=== PATIENT | male | born 1950 | race Hispanic/Latino ===

== ENCOUNTER 2017-04-21 14:31 | Emergency (ER) | payer OTHER ==
[~2017-04-21] VITALS: Ht 170.2 cm; Wt 115.7 kg
[2017-04-21 14:44] VITALS: TEMP 98.7
[2017-04-21 15:27] LABS: PLATELET COUNT 168 K/uL (142-355)
[2017-04-21 15:34] LABS: POTASSIUM 3.4 mmol/L (3.6-5.2); SODIUM 142 mmol/L (136-145)
[2017-04-21 15:53] VITALS: BP 134/82
== END 2017-04-21 15:59 | disposition home or self-care (01) ==
LOC: ED 14:31
PROVIDERS: Emergency Medicine
DX: I10 Essential (primary) hypertension (principal)
CPT/HCPCS: 36415; 80053; 82550; 83880; 84484; 85027; 96374; 96375; 99283; J1940

== ENCOUNTER 2019-10-28 17:29 | Outpatient (CLI) | payer OTHER | END 2019-10-28 17:32 | disposition short-term general hospital (02) | LOC: AMB 17:29 | DX: R51 Headache (principal); R42 Dizziness and giddiness; W03.XXXA Other fall on same level due to collision with another person, initial encounter; Y92.89 Other specified places as the place of occurrence of the external cause | CPT/HCPCS: A0425; A0429 ==

== ENCOUNTER 2019-10-28 17:35 | Inpatient (IN) | payer OTHER ==
[~2019-10-28] VITALS: Ht 170.2 cm; Wt 111.6 kg
[2019-10-28] VITALS (7 sets, daily range): BP systolic 160–188; BP diastolic 89–913; TEMP 98.3–98.8; Ht 170.2 cm; Wt 111.6 kg
[2019-10-28 18:28] LABS: PLATELET COUNT 159 K/uL (142-355)
[2019-10-28 18:43] LABS: POTASSIUM 3.4 mmol/L (3.6-5.2)
[2019-10-28 22:22] LABS: PARTIAL THROMBOPLASTIN TIME 23.5 SECONDS (24.5-33.6)
[2019-10-29] VITALS: BP 160/90; BP 168/106; TEMP 99
[2019-10-29 04:00] VITALS: BP 156/92; TEMP 98.7
[2019-10-29 08:00] VITALS: BP 155/100; TEMP 98.3
[2019-10-29 12:00] VITALS: BP 144/85; TEMP 99
[2019-10-29 16:00] VITALS: BP 149/90; TEMP 98.3
[2019-10-29 20:00] VITALS: BP 151/99; TEMP 98.9
[2019-10-30] VITALS: BP 148/95; TEMP 99.4
[2019-10-30 04:00] VITALS: BP 148/93; TEMP 98.6
[2019-10-30 08:00] VITALS: BP 151/94; TEMP 98.3
[2019-10-30 09:38] LABS: POTASSIUM 3.8 mmol/L (3.6-5.2)
[2019-10-30 09:52] LABS: PLATELET COUNT 145 K/uL (142-355)
[2019-10-30 12:00] VITALS: BP 156/97; TEMP 98.5
[2019-10-30 16:00] VITALS: BP 158/95; TEMP 97.7
[2019-10-30 20:00] VITALS: BP 151/88; TEMP 98.5
[2019-10-31] VITALS: BP 163/101; TEMP 99.3
[2019-10-31 04:00] VITALS: BP 164/105; TEMP 97.8
[2019-10-31 04:41] LABS: PLATELET COUNT 153 K/uL (142-355)
[2019-10-31 04:53] LABS: POTASSIUM 3.7 mmol/L (3.6-5.2)
[2019-10-31 08:00] VITALS: BP 164/110; TEMP 97.6
[2019-10-31 12:00] VITALS: BP 158/99; TEMP 98.9
[2019-10-31 16:00] VITALS: BP 148/100; TEMP 98.5
[2019-10-31 20:00] VITALS: BP 143/89; TEMP 98.5
[2019-11-01] VITALS: BP 140/83; TEMP 99
[2019-11-01 04:00] VITALS: BP 147/92; TEMP 99.7
[2019-11-01 05:28] LABS: PLATELET COUNT 146 K/uL (142-355)
[2019-11-01 05:35] LABS: POTASSIUM 4.3 mmol/L (3.6-5.2)
[2019-11-01 08:00] VITALS: BP 136/95; TEMP 98.1
[2019-11-01 12:00] VITALS: BP 133/80; TEMP 98.8
[2019-11-01] MEDS ORDERED: METO-837 PO (12:06)
[2019-11-01] MEDS ORDERED: ASPIRIN325 M1 PO (12:06)
[2019-11-01] MEDS ORDERED: FURO20TA67 PO (14:18)
[2019-11-01] MEDS ORDERED: K-TAB10 MEQ PO (14:18)
== END 2019-11-01 18:25 | disposition home or self-care (01) | DRG 125 ==
LOC: ED 17:35 → MED/SURG 20:10
PROVIDERS: Emergency Medicine; ADMIT Internal Medicine
DX: S00.12XA Contusion of left eyelid and periocular area, initial encounter (principal); I50.1 Left ventricular failure, unspecified; D72.828 Other elevated white blood cell count; R07.89 Other chest pain; I11.0 Hypertensive heart disease with heart failure; J44.9 Chronic obstructive pulmonary disease, unspecified; E87.6 Hypokalemia; W03.XXXA Other fall on same level due to collision with another person, initial encounter; Y92.89 Other specified places as the place of occurrence of the external cause
CPT/HCPCS: 36415; 80048; 80053; 80202; 81000; 82150; 82550; 83605; 83690; 83880; 84484; 85027; 85610; 85730; 87040; 93005; 96360; 96375; 99284; J1650; J2405; J2543; J3370; Q9963

== ENCOUNTER 2020-03-13 11:08 | Inpatient (IN) | payer OTHER ==
[~2020-03-13] VITALS: Ht 170.2 cm; Wt 112.1 kg
[2020-03-13] VITALS (14 sets, daily range): BP systolic 81–125; BP diastolic 57–74; TEMP 98.7–98.8; Ht 170.2 cm; Wt 112.1 kg
[~2020-03-13 11:08] MED LIST: ASPIRIN325 M1 PO; FURO20TA67 PO; K-TAB10 MEQ PO; METO-837 PO
[2020-03-13 12:26] LABS: POTASSIUM 4.5 mmol/L (3.6-5.2)
[2020-03-13 12:27] LABS: PLATELET COUNT 184 K/uL (142-355)
[2020-03-13 12:29] LABS: PARTIAL THROMBOPLASTIN TIME 22.1 SECONDS (24.5-33.6)
[2020-03-14] VITALS (29 sets, daily range): BP systolic 81–172; BP diastolic 46–112; TEMP 98.2–99.9
[2020-03-14 09:57] LABS: POTASSIUM 4.3 mmol/L (3.6-5.2)
[2020-03-14 10:23] LABS: PLATELET COUNT 213 K/uL (142-355)
== END 2020-03-14 16:00 | disposition short-term general hospital (02) | DRG 308 ==
LOC: ICU 11:08 → MED/SURG 11:08 → ICU 14:09
PROVIDERS: ADMIT Family Medicine
DX: I48.0 Paroxysmal atrial fibrillation (principal); U07.1 COVID-19; J96.00 Acute respiratory failure, unspecified whether with hypoxia or hypercapnia; J18.8 Other pneumonia, unspecified organism; J44.1 Chronic obstructive pulmonary disease with (acute) exacerbation; I10 Essential (primary) hypertension; I16.0 Hypertensive urgency; D72.828 Other elevated white blood cell count; R61 Generalized hyperhidrosis
CPT/HCPCS: 36415; 36600; 80053; 80307; 82550; 82553; 82805; 83605; 83880; 84484; 85007; 85027; 85379; 85610; 85730; 87040; 87070; 87077; 87185; 87205; 87635; 93005; 94002; 94003; 94664; 94760; 99220; G0378; G0379; J0360; J0456; J1160; J1644; J1650; J1940; J2060; J2543; J3370; J3490; Q9963; U0002

== ENCOUNTER 2020-05-13 16:26 | Emergency (ER) | payer OTHER ==
[~2020-05-13] VITALS: Ht 170.2 cm; Wt 112.0 kg
[2020-05-13 17:44] LABS: PLATELET COUNT 191 K/uL (142-355)
[2020-05-13 17:49] LABS: POTASSIUM 4.7 mmol/L (3.6-5.2); SODIUM 143 mmol/L (136-145)
[2020-05-14 03:37] VITALS: TEMP 98.6
[2020-05-14 03:47] VITALS: BP 112/70
== END 2020-05-14 03:49 | disposition short-term general hospital (02) ==
LOC: ED 16:26
PROVIDERS: Emergency Medicine
DX: I50.9 Heart failure, unspecified (principal); I48.20 Chronic atrial fibrillation, unspecified
CPT/HCPCS: 80053; 82550; 82553; 83880; 84484; 85027; 85379; 96374; 96375; 99285; J1940; J3490; Q9963

== ENCOUNTER 2020-12-16 17:25 | Observation (INO) | payer OTHER ==
[2020-12-16] VITALS (10 sets, daily range): BP systolic 134–168; BP diastolic 86–112; TEMP 98.3–98.5; Ht 170.2 cm; Wt 102.1 kg
[~2020-12-16] VITALS: Ht 170.2 cm; Wt 102.1 kg
[2020-12-16 19:20] LABS: PLATELET COUNT 176 K/uL (142-355)
[2020-12-16 19:27] LABS: PARTIAL THROMBOPLASTIN TIME 22.9 SECONDS (24.5-33.6)
--- NOTE | 2020-12-16 21:47 | NUR ---
PATIENT ARRIVED ON THE FLOOR VIA W/C FROM ER. TRANSFERRED TO BED IN ROOM 1111. PATIENT ORIENTED TO SURROUNDINGS AND CALL LIGHT SYSTEM. ALERT AND ORIENTED. ABLE TO AMBULATE IF NEEDED. 20 TO LEFT AC SALINE LOCKED. NO ERYTHEMA OR SWELLING NOTED. PATIENT ON RA- O2 SATS ARE 95%. DENIES ANY SOB. B/P IS 158/112 ON THE MACHINE. 168/102 MANUALLY. WILL RE-ASSESS. PATIENT DID HAVE ELEVATED DIASTOLIC B/P UPON ARRIVING TO ER TODAY. HE IS ALSO A POOR HISTORIAN, AND IS UNABLE TO RECALL HIS HOME MEDICATIONS AT THIS TIME. BED LOCKED AND IN LOWEST POSITION. CALL LIGHT WITHIN EASY REACH.
--- NOTE | 2020-12-16 22:50 | NUR ---
IN TO RE-CHECK PATIENT'S B/P. PATIENT RESTING QUIETLY IN BED. NAD NOTED. 146/98 OBTAINED MANUALLY AT THIS TIME. PATIENT DENIES ANY OTHER CONCERNS OR COMPLAINTS. LEVAQUIN IVPB STARTED. CALL LIGHT WITHIN EASY REACH.
[2020-12-17] VITALS: BP 144/101; TEMP 97.6
--- NOTE | 2020-12-17 01:10 | NUR ---
LEVAQUIN IVPB FINISHED. 20G TO LEFT AC SALINE LOCKED AT THIS TIME. PATIENT DOES REPORT MILD SOB. RR IS SLIGHTLY ELEVATED BUT NO USE OF ACCESSORY MUSCLES NOTED. PATIENT IS BREATHING PRIMARILY THROUGH HIS MOUTH- INSTRUCTED ON BREATHING IN THROUGH THE NOSE AND OUT THROUGH THE MOUTH. ALSO ENCOURAGED PATIENT TO KEEP HOB ELEVATED TO HELP WITH SOB. CURRENT O2 SAT ON ROOM AIR IS 94-95% ENTERED PATIENT'S ROOM A FEW MINUTES LATER. HE STATES THAT THIS DID HELP. HE STATES THAT HE DID NOT USE ANY INHALERS OR MEDICATIONS FOR ASTHMA AT HOME.
[2020-12-17 04:00] VITALS: BP 142/92; TEMP 98.2
--- NOTE | 2020-12-17 04:42 | NUR ---
ELEVATED DIASTOLIC ON B/P READING BY MACHINE: 150/102. MANUAL B/P: 142/96. PATIENT RESTING QUIETLY IN BED. NO COMPLAINTS VOICED.
[2020-12-17 05:00] LABS: PLATELET COUNT 163 K/uL (142-355)
[2020-12-17 05:09] LABS: POTASSIUM 4.2 mmol/L (3.6-5.2)
--- NOTE | 2020-12-17 06:10 | NUR ---
IN TO GIVE PATIENT SOLU-MEDROL. PATIENT RESTING QUIETLY IN BED. NAD NOTED. PATIENT STATES HE FEELS MUCH BETTER THAN HE DID WHEN HE CAME IN THE ER LAST NIGHT. BED LOCKED AND IN LOWEST POSITION. CALL LIGHT WITHIN EASY REACH.
--- NOTE | 2020-12-17 07:30 | NUR ---
DARLING BRAND NOTICED WHILE TAKE MORNING VITALS THAT PT WAS LABORED IN BREATHING. RT WAS CONTACTED AND DAPHNE CAME TO PT'S ROOM. PT WAS GIVEN A BREATHING TREATMENT, DAPHNE STATED THAT PT SOUNDED CLEAR ALL OVER AND O2 SATURATION WAS AROUND 95%.
[2020-12-17 08:00] VITALS: BP 140/100; TEMP 98.3
--- NOTE | 2020-12-17 08:55 | NUR ---
INFORMED DR. REID OF PT'S LABS AND PM AND AM BP'S DR. REID STATES TO GET MED LIST FROM OFFICE AND RESTART HOME MEDICATIONS AT THIS TIME, NO FURTHER ORDERS GIVEN
[2020-12-17] MEDS ORDERED: AMIODARONE400 MG PO (09:49)
[2020-12-17] MEDS ORDERED: ASPIR-8181 MG PO (09:49)
[2020-12-17] MEDS ORDERED: BUMETANIDE2 MG PO (09:50)
[2020-12-17] MEDS ORDERED: CARV12.5 PO (09:54)
[2020-12-17] MEDS ORDERED: ELIQUIS5 MG PO (09:55)
[2020-12-17] MEDS ORDERED: CORRECTOL100 MG PO (09:55)
[2020-12-17] MEDS ORDERED: JANUVIA100 MG PO (09:56)
[2020-12-17] MEDS ORDERED: ENTRESTO 24-261 TAB PO (09:56)
[2020-12-17] MEDS ORDERED: LIPITOR80 MG PO (10:15)
[2020-12-17] MEDS ORDERED: DIGITEK0.125 MG PO (10:17)
--- NOTE | 2020-12-17 11:00 | NUR ---
JEREMIAS FROM PHARMACY STATES THAT PT'S HOME MEDICATION ENTRESTRO IS NOT AVAILABLE HERE AND WILL HAVE TO BE FILLED AT AN OUTSIDE PHARMACY AND BROUGHT IN, DR. REID STATES TO CALL IN MEDICATION AT PHARMACY AND GET THE MEDICATION SO PT CAN TAKE IT WHILE HE IS HERE, I ATTEMPTED TO CALL PT'S AND DAUGTER AND DO NOT HAVE THE CORRECT NUMBERS, PT IS UNABLE TO TELL ME ANY NUMBERS TO GET AHOLD OF HIS FAMILY, MEDICATION IS CALLED INTO [facility] AND WILL BE PICKED UP THIS AFTERNOON
[2020-12-17 12:00] VITALS: BP 157/102; TEMP 98
--- NOTE | 2020-12-17 13:30 | NUR ---
HUMAN SERVICES SUPERVISOR NOTIFIED COPPING MACHINE OPERATOR THAT PT'S IV WAS LEAKING BLOOD. COPPING MACHINE OPERATOR REMOVED TAPE AND IV CATHETER WAS SLIGHTLY OUT. WHEN FLUSHED, IV WOULD FLUSH WITHOUT DIFFICULTY BUT NO BLOOD RETURN. WHEN ASKED IF THE IV HURT PT STATED NO BUT THAT IT WAS ANNOYING WHEN HE TRIED TO MOVE. SARAH JIMENEZ RN REMOVED OLD IV AND BEGAN A NEW IV IN THE RT FOREARM.
--- NOTE | 2020-12-17 15:09 | NUR ---
i spoke with pt in his room today to inquire about his discharge needs, he stated that he will see Dr. Briggs on FU from hospital and denies any other needs but stated he has been off of his medication. He stated i could call his Margie Trotter or his step daughter Carina Trotter about his discharge plans. I tried phoning his but the phone number on the chart was disconnected. I went back to ask Mr. Trotter if he knew of any other phone numbers for his , and he said no, that she changed phone numbers often. I asked if he knew Carina's phone number and he stated no, she also changes phone numbers all the time. I was able to get a phone number from Dr. Flanagan's office for Carina. I spoke to Carina trotter [phone] and she stated that she lives at home with and Mrs. Trotter, she stated that her mother had a "bad stroke" 01/2020 and that she is paralyzed on the right side and is bedridden. She states Mr. Trotter and she help take care of Mrs. Trotter. She went on to state that Mr. Trotter "is stubborn and wont take his medicines." I informed her that we will make a follow up appt with Dr. Briggs and will make sure he had clear discharge instructions. She also stated Mrs. Rios current phone number is [phone].
[2020-12-17 16:06] VITALS: BP 109/76; TEMP 97.8
[2020-12-17 20:00] VITALS: BP 121/82; TEMP 98.1
[2020-12-18] VITALS: BP 117/77; TEMP 97.8
[2020-12-18 04:00] VITALS: BP 110/70; TEMP 97.9
[2020-12-18 04:07] LABS: PLATELET COUNT 152 K/uL (142-355)
[2020-12-18 04:19] LABS: POTASSIUM 4.4 mmol/L (3.6-5.2)
[2020-12-18 08:00] VITALS: BP 121/74; TEMP 98
--- NOTE | 2020-12-18 09:20 | NUR ---
12/18/20 0850 PT SITTING ON SIDE OF BED DENIES ANY PAIN OR DISCOMFORT.SALINE INTACT TO LT FOREARM 22 GAUDGE.PT STATES HE FEELS WELL THIS AM.CALL LIGHT WITHIN REACH.CC
[2020-12-18 12:00] VITALS: BP 105/66; TEMP 97.9
--- NOTE | 2020-12-18 12:17 | NUR ---
12/18/20 1217 SITTING ON SIDE OF BED EATING LUNCH 100 PERCENT EATEN.NO C/O VOICED.CALL LIGHT WITHIN REACH.CC
--- NOTE | 2020-12-18 14:19 | NUR ---
12/18/20 1350 PT RECEVING BREATHING TREATMENT TOLERATING WELL.NO C/O VOICED.CALL LIGHT WITHIN REACH.CC
--- NOTE | 2020-12-18 15:36 | NUR ---
12/18/20 1517 NEW ORDER PER DISCHARGE PATIENT TO HOME.CALL IN [place] TO [facility].OME MEDICATIONS REFILLS,Z-PACK,PROAIR INHALER.CC
--- NOTE | 2020-12-18 16:11 | NUR ---
12/18/20 1610 DISCHARGE INSTRUCTIONS GIVEN AND SIGNED.SL REMOVED APPLIED 2X2 SECURED WITH TAPE.[facility] CALLED PER DR.FORDHAM BARRAGAN TO FILL Z-PACK,PROAIR INHALER X 2 PUFFS QID.CC
--- NOTE | 2020-12-18 16:42 | NUR ---
12/18/2020 1630 NEW ORDER TO REFILL PATIENT HOME MEDICAITONS WITH [facility].CALLED IN TO [facility].CC 12/18/2020 1645 PT TOOK OUT VIA WHEELCHAIR TO [facility].CC
== END 2020-12-18 16:45 | disposition home or self-care (01) ==
LOC: ED 17:25 → MED/SURG 20:18
PROVIDERS: ADMIT Family Medicine; ATTEND Family Medicine
DX: J44.1 Chronic obstructive pulmonary disease with (acute) exacerbation (principal); Z91.19 Patient's noncompliance with other medical treatment and regimen; I10 Essential (primary) hypertension; F17.200 Nicotine dependence, unspecified, uncomplicated; E86.0 Dehydration; I25.10 Atherosclerotic heart disease of native coronary artery without angina pectoris; R06.02 Shortness of breath
CPT/HCPCS: 36415; 80053; 81000; 82550; 83735; 84100; 84484; 85027; 85610; 85730; 87040; 87635; 93005; 94640; 94664; 94760; 96365; 96367; 96372; 96375; 99220; 99284; G0378; J0456; J0696; J1020; J1956; J2930; U0003

== ENCOUNTER 2021-05-17 10:32 | Outpatient (CLI) | payer OTHER ==
[~2021-05-17 10:32] MED LIST changes: +AMIODARONE400 MG PO; +ASPIR-8181 MG PO; +BUMETANIDE2 MG PO; +CARV12.5 PO; +CORRECTOL100 MG PO; +DIGITEK0.125 MG PO; +ELIQUIS5 MG PO; +ENTRESTO 24-261 TAB PO; +JANUVIA100 MG PO; +LIPITOR80 MG PO
== END 2021-05-17 21:45 | disposition home or self-care (01) ==
LOC: LAB 10:32 → RESP 10:32
PROVIDERS: ATTEND Family Medicine
DX: R07.9 Chest pain, unspecified (principal)
CPT/HCPCS: 82550; 82553; 83735; 84100; 84484; 93005

== ENCOUNTER 2021-06-05 10:55 | Emergency (ER) | payer OTHER ==
[~2021-06-05] VITALS: Ht 170.2 cm; Wt 102.1 kg
[2021-06-05 11:00] VITALS: TEMP 98.3
[2021-06-05 12:32] LABS: PLATELET COUNT 200 K/uL (142-355)
[2021-06-05 12:40] LABS: POTASSIUM 3.7 mmol/L (3.6-5.2)
[2021-06-05 16:05] VITALS: BP 125/86
== END 2021-06-05 16:05 | disposition home or self-care (01) ==
LOC: ED 10:55
PROVIDERS: Family Medicine
DX: I50.9 Heart failure, unspecified (principal); R06.09 Other forms of dyspnea; J40 Bronchitis, not specified as acute or chronic; Z20.822 Contact with and (suspected) exposure to COVID-19
CPT/HCPCS: 80053; 82550; 83880; 84484; 85027; 85610; 85730; 87635; 93005; 94664; 96365; 96374; 96375; 99284; J0696; J1940; J2930; U0003

== ENCOUNTER 2021-06-08 19:44 | Inpatient (IN) | payer OTHER ==
[~2021-06-08] VITALS: Ht 170.2 cm; Wt 101.6 kg
[2021-06-08 19:55] VITALS: BP 117/87; TEMP 98.3
[2021-06-08 20:30] VITALS: BP 119/93
[2021-06-08 20:55] LABS: PLATELET COUNT 258 K/uL (142-355)
[2021-06-08 21:00] VITALS: BP 104/80
[2021-06-08 21:35] LABS: POTASSIUM 6.2 mmol/L (3.6-5.2)
[2021-06-08 22:15] VITALS: BP 111/83
[2021-06-08 23:00] VITALS: BP 97/65
[2021-06-09] VITALS (18 sets, daily range): BP systolic 79–131; BP diastolic 54–101; TEMP 96.8–98.7; Ht 170.2 cm; Wt 101.6 kg
[2021-06-09 05:33] LABS: PLATELET COUNT 258 K/uL (142-355)
[2021-06-09 05:39] LABS: POTASSIUM 5.8 mmol/L (3.6-5.2)
[2021-06-09 20:45] LABS: PLATELET COUNT 188 K/uL (142-355)
[2021-06-09 20:53] LABS: POTASSIUM 3.9 mmol/L (3.6-5.2)
[2021-06-10] VITALS: TEMP 97.2
[2021-06-10 02:59] LABS: POTASSIUM 3.3 mmol/L (3.6-5.2)
[2021-06-10 04:00] VITALS: TEMP 98.1
[2021-06-10 08:00] VITALS: TEMP 98.7
[2021-06-10 08:09] LABS: PLATELET COUNT 181 K/uL (142-355)
[2021-06-10 12:00] VITALS: TEMP 99.3
[2021-06-10 16:00] VITALS: TEMP 99.8
[2021-06-10 18:09] LABS: POTASSIUM 3.4 mmol/L (3.6-5.2)
[2021-06-11] VITALS (13 sets, daily range): BP systolic 84–115; BP diastolic 53–74; TEMP 98.5–99.3
[2021-06-11 05:10] LABS: PLATELET COUNT 155 K/uL (142-355)
[2021-06-11 05:29] LABS: POTASSIUM 3.4 mmol/L (3.6-5.2)
[2021-06-12 00:01] VITALS: TEMP 97.2
[2021-06-12 04:00] VITALS: TEMP 97
[2021-06-12 05:07] LABS: PLATELET COUNT 157 K/uL (142-355)
[2021-06-12 05:26] LABS: POTASSIUM 4.3 mmol/L (3.6-5.2)
[2021-06-12 20:00] VITALS: TEMP 97.8
[2021-06-13 00:01] VITALS: TEMP 99.6
[2021-06-13 04:30] LABS: PLATELET COUNT 172 K/uL (142-355)
[2021-06-13 04:53] LABS: POTASSIUM 3.5 mmol/L (3.6-5.2)
[2021-06-13 20:00] VITALS: TEMP 98.5
[2021-06-14] VITALS (8 sets, daily range): TEMP 99.2–101.4
[2021-06-14 06:03] LABS: PLATELET COUNT 137 K/uL (142-355)
[2021-06-14 06:18] LABS: POTASSIUM 3.4 mmol/L (3.6-5.2)
[2021-06-15] VITALS: TEMP 99.6
[2021-06-15 04:00] VITALS: TEMP 99.3
[2021-06-15 04:08] LABS: PLATELET COUNT 119 K/uL (142-355)
[2021-06-15 20:00] VITALS: TEMP 99.8
[2021-06-16] VITALS (14 sets, daily range): BP systolic 65–108; BP diastolic 35–85; TEMP 98.5–100.1
[2021-06-16 06:47] LABS: PLATELET COUNT 127 K/uL (142-355)
[2021-06-16 07:00] LABS: POTASSIUM 3.9 mmol/L (3.6-5.2)
[2021-06-17] VITALS (15 sets, daily range): BP systolic 67–114; BP diastolic 38–82; TEMP 97–99.9
[2021-06-17 06:29] LABS: PLATELET COUNT 111 K/uL (142-355)
[2021-06-17 06:57] LABS: POTASSIUM 4.7 mmol/L (3.6-5.2)
[2021-06-18 00:01] VITALS: TEMP 98.7
[2021-06-18 04:00] VITALS: TEMP 97.6
[2021-06-18 05:22] LABS: PLATELET COUNT 96 K/uL (142-355)
[2021-06-18 08:00] VITALS: TEMP 98.1
[2021-06-18 08:35] LABS: POTASSIUM 5.3 mmol/L (3.6-5.2)
[2021-06-18 12:00] VITALS: TEMP 98.7
== END 2021-06-18 15:49 | disposition short-term general hospital (02) | DRG 207 ==
LOC: ED 19:44 → PCU 06-09 18:18 → UNDODEPER 06-11 19:01 → PCU 06-18 15:49
PROVIDERS: Emergency Medicine Emergency Medical Services; ADMIT Family Medicine; ATTEND Family Medicine
PROC: 5A1955Z Respiratory Ventilation, Greater than 96 Consecutive Hours (ICD-10-PCS; principal; 2021-06-08)
PROC: 0BH17EZ Insertion of Endotracheal Airway into Trachea, Via Natural or Artificial Opening (ICD-10-PCS; 2021-06-08)
DX: U07.1 COVID-19 (principal); J12.82 Pneumonia due to coronavirus disease 2019; R65.21 Severe sepsis with septic shock; R57.0 Cardiogenic shock; J96.00 Acute respiratory failure, unspecified whether with hypoxia or hypercapnia; R18.8 Other ascites; N17.8 Other acute kidney failure; B37.89 Other sites of candidiasis; J44.0 Chronic obstructive pulmonary disease with (acute) lower respiratory infection; I13.0 Hypertensive heart and chronic kidney disease with heart failure and stage 1 through stage 4 chronic kidney disease, or unspecified chronic kidney disease; N18.4 Chronic kidney disease, stage 4 (severe); I48.91 Unspecified atrial fibrillation; E78.49 Other hyperlipidemia; E87.5 Hyperkalemia; F22 Delusional disorders; R61 Generalized hyperhidrosis; Z91.19 Patient's noncompliance with other medical treatment and regimen; K76.1 Chronic passive congestion of liver; D64.89 Other specified anemias; E88.09 Other disorders of plasma-protein metabolism, not elsewhere classified; E66.8 Other obesity; E11.22 Type 2 diabetes mellitus with diabetic chronic kidney disease; I50.9 Heart failure, unspecified
CPT/HCPCS: 31500; 36415; 36600; 43754; 51702; 80048; 80053; 80061; 81000; 82150; 82550; 82728; 82805; 83605; 83690; 83735; 83880; 84100; 84443; 84484; 85007; 85027; 85379; 86140; 87040; 87070; 87077; 87185; 87186; 87205; 87502; 87635; 93005; 94002; 94003; 94644; 94664; 94760; 96360; 96361; 96365; 96366; 96368; 96375; 99285; J0132; J0171; J0330; J0456; J0610; J0696; J1100; J1265; J1450; J1650; J1815; J1940; J1956; J2185; J2250; J2270; J3411; J3480; J3490; J7060; U0003